=== PATIENT | female | born 1980 | race Caucasian/White ===

== ENCOUNTER 2023-06-12 06:08 | Emergency (ER) | payer MEDICAID ==
[2023-06-12] MEDS ORDERED: Acetaminophen 500 MG Tab PO ONE (06:34)
== END 2023-06-12 07:15 | disposition other institution (70) ==
LOC: JP.ED 06:08
DX: S76.111A Strain of right quadriceps muscle, fascia and tendon, initial encounter (principal); J45.909 Unspecified asthma, uncomplicated; F17.210 Nicotine dependence, cigarettes, uncomplicated; Z86.16 Personal history of COVID-19; Z88.8 Allergy status to other drugs, medicaments and biological substances; Z88.6 Allergy status to analgesic agent; X58.XXXA Exposure to other specified factors, initial encounter
CPT/HCPCS: 99283; 99284; A9270-GY